=== PATIENT | female | born 2000 | race Caucasian/White ===

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

== ENCOUNTER → 2019-02-26 10:58 | Outpatient (CLI) | payer OTHER, SELFPAY ==
[2019-01-31 16:22] VITALS: BMI 32.5
--- NOTE | 2019-02-26 11:30 | MRI_ITS ---
STUDY: MRI ABDOMEN WITH AND WITHOUT CONTRAST REASON FOR EXAM: Female, 18 years old. Follow-up hepatic mass TECHNIQUE: Standardized fat and water weighted pulse sequences were obtained in all 3 orthogonal planes post contrast administration. IV Dotarem 17 was administered for the contrast portion of the examination. COMPARISON: 08/15/2018 FINDINGS: The visualized lung bases are unremarkable. The visualized portions of the heart are within normal limits. There is no change in the 4.8 x 5.3 cm oval mass of isointensity of the posterior segment the right lobe of the liver which demonstrates transient solid contrast enhancement on the arterial phase images and faint decreased enhancement on the portal venous phase images and more delayed images. This is likely of benign etiology such as a hepatic adenoma or focal nodular hyperplasia. Normal gallbladder and extrahepatic biliary system. Normal spleen. Normal pancreas. Normal bilateral adrenal glands. Normal right kidney. Normal left kidney. Normal visualized stomach. Normal small intestine. Normal colon. The appendix is visualized and appears normal. Normal abdominal aorta. Normal inferior vena cava. Normal retroperitoneum. Normal abdominal wall. Normal osseous structures. MRI/MRI Abd WITH and W/O Contrast IMPRESSION: No change in 4.8 x 5.3 cm isointense transiently solidly enhancing mass of the posterior segment the right lobe of liver likely consistent with hepatic adenoma or focal nodular hyperplasia. Electronically Signed: Luc Arrignton MD at 15:38 EDT Tel , Service support ,
== END ==
PROVIDERS: Family Provider Nurse Practitioner Family; PCP Nurse Practitioner Family
DX: D13.4 Benign neoplasm of liver (principal)
CPT/HCPCS: 74183; A9575; A4216

== ENCOUNTER 2019-03-18 16:49 | Emergency (ER) | payer OTHER, SELFPAY ==
[2019-01-31 16:22] VITALS: BMI 32.5
[2019-03-18 16:50] VITALS: BP 135/86; PULSE 104; RESP 24; TEMP 37.1; O2SAT 106; BMI 33.6
[2019-03-18 17:47] VITALS: BP 112/65; PULSE 80; PULSE 81; RESP 18; RESP 19; TEMP 36.6; O2SAT 100; O2SAT 98; O2SAT 99
--- NOTE | 2019-03-18 18:40 | RAD_ITS ---
STUDY: X-RAY CHEST REASON FOR EXAM: Female, 18 years old. Shortness of breath. Pain. Recent surgery. TECHNIQUE: PA and lateral views of the chest. COMPARISON: September 14, 2018 FINDINGS: The lungs are clear and expanded. There is no demonstrated pleural abnormality. Normal size heart. Normal mediastinum and juan. Normal visualized pulmonary arteries. Normal visualized aortic arch and descending thoracic aorta. Normal visualized thoracic spine. Normal visualized ribs, clavicles, and shoulders. There is postoperative change in the right upper abdomen. RAD/Chest PA and Lateral IMPRESSION: Normal x-ray examination of the chest. Electronically Signed: Travis Coleman MD at 19:01 EST , Service support ,
[2019-03-18 18:41] LABS: Absolute Lymphocyte Count 1.17 X10^3/uL (0.83-4.51); Absolute Neutrophil Count 10.2 X10^3/uL (2.0-7.7); Basophil# 0.03 X10^3/uL; Basophil% 0.2 % (0-1); Eosinophil# 0.28 X10^3/uL; Eosinophils% 2.2 % (0-5); Hemoglobin 11.5 g/dL (12.0-15.0); Lymphocyte # 1.17 X10^3/ul (4.0); Lymphocyte % 9.2 % (19-41); Mean Corp Hgb Conc 32.9 g/dL (32-36); Mean Corpuscular Hgb 28.4 pg (27.0-32.0); Mean Corpuscular Volume 86.4 fL (81-99); Mean Platelet Vol. 9.2 fl (6.2-12.0); Monocyte# 0.88 X10^3/uL; NRBC Flagged by Analyzer 0 % (0-5); Neutrophil # 10.24 X10^3/uL (2.7-7.7); Neutrophil % 80.9 % (47-70); Platelet Count 277 K/mm3 (150-450); RBC Distribution Width CV 12.6 % (11.6-14.6); RBC Distribution Width SD 39.8 fl (35.1-43.9); Red Blood Count 4.05 M/mm3 (4.2-5.4); White Blood Count 12.7 K/mm3 (4.4-11.0)
--- NOTE | 2019-03-18 18:41 | ED.RN ---
PT DECLINING MORPHINE BECAUSE IT DOES NOT WORK. PT REQUESTING TORADOL. DR RON NOTIFIED OF SAME
[2019-03-18 18:50] LABS: Anion Gap 6 (5-15); BUN 10 mg/dL (7-18); BUN/Creat Ratio 16.2 RATIO (10-20); Calcium,Total 9.1 mg/dL (8.5-10.1); Chloride 105 mmol/L (98-107); Creatinine, Serum 0.62 mg/dL (0.55-1.02); EST Glomerular Filtration Rate 132 mL/min (>60); Est Glom Filt Rate - Afr Amer 159 mL/min (>60); Estimated Creatinine Clearance 120.73 ml/min; Glucose 98 mg/dL (74-106); Potassium 3.4 mmol/L (3.5-5.1); Sodium Level 139 mmol/L (136-145)
[2019-03-18] MEDS: Ondansetron 4 MG/2 ML Vial IV (18:51)
[2019-03-18] MEDS: Ketorolac 30 MG/ML Syringe IV (18:53)
[2019-03-18] MEDS: 0.9% Normal Saline 1,000 ML 1000 ML IV (18:54)
[2019-03-18 18:56] VITALS: BP 115/97; PULSE 89; RESP 20; TEMP 36.7; O2SAT 99
[2019-03-18 19:19] LABS: Color, Urine Yellow (Yellow); Glucose, Dipstick Normal (Normal); Ketone-Dipstick 5 mg/dl (Negative); Leukocyte Esterase-Dipstick 100 /ul (Negative); Nitrite-Dipstick Negative (Negative); Occult Blood-Urine 10 /ul (Negative); Protein-Dipstick 30 mg/dl (Negative); Urine Bilirubin Dipstick Negative (Negative); Urine Clarity Sl. Cloudy (Clear); Urine Urobilinogen 4 mg/dl (Normal)
[2019-03-18 19:32] LABS: Bacteria 2+ /hpf (None Seen); Mucous, Urine 2+ /hpf (<or=2+); Red Blood Cells-Urine 0-5 SEEN /hpf (0-5); Squamous Epithelial Cells - UA 25-50 SEEN /hpf (5-10); White Blood Cells 10-25 SEEN /hpf (0-5)
[2019-03-18 20:00] VITALS: BP 121/83; PULSE 88; RESP 16; TEMP 36.6; O2SAT 100
[2019-03-18 21:05] VITALS: BP 134/62; PULSE 88; RESP 18; O2SAT 100
[2019-03-18 22:11] VITALS: BP 134/62; PULSE 82; RESP 17; TEMP 36.6; O2SAT 98
--- NOTE | 2019-03-18 22:11 | ED.DCSUM_ITS ---
- ER Visit Summary Date of Service: 03/18/19 Chief Complaint: Left face pain and shortness of breath History of Present Illness: The patient is a 18 F who presents with left facial pain and shortness of breath that began today. Patient describes the pain as aching and shooting. Patient states the pain is over the left face and radiates down into her left neck. Patient also admits to some left ear pain. Patient admits to some shortness of breath. Patient also admits to a cough. Patient had a recent liver resection on 03/12 at [facility]. Patient admits to subjective fevers and chills. Patient admits to nausea but denies any vomiting. Physical Examination: Vital signs are stable. Patient is afebrile. Patient is in no acute distress. Oral mucosa is pink and moist. Neck is supple. Trachea is midline. There is no JVD. Heart was regular rate and rhythm. Lungs are clear and equal bilaterally. Abdomen is soft. Bowel sounds are normal. The incisions are healing well with no signs of infection. There is some mild tenderness along the incisions. There is no rebound or guarding noted. Cranial nerves II through XII are intact. There are no focal motor or sensory deficits noted. Test Results: PA and lateral chest x-ray was obtained. There is no acute cardiopulmonary process. CBC shows a slight leukocytosis of 12.7. Hemoglobin was 11.5 and hematocrit 35.0. Test was slightly low at 3.4. Urinalysis was contaminated. There were 25-50 epithelial cells and 10-25 white blood cells. Nitrites were negative. Emergency Department Course and Treatment: Patient was given Toradol and Zofran here. Patient was feeling better on reevaluation however she felt like her pain was starting to come back. She wanted me to check to make sure there was no ear infection. Her tympanic membranes were clear bilaterally. Patient was given a dose of tramadol here. Patient was instructed to continue her tramadol at home. Patient was instructed to follow-up with her surgeon and her primary care physician as scheduled. Patient understood and was agreeable with the plan. All questions were answered. Disposition: Discharge home Impression: 1. Left facial pain 2. Dyspnea This note was generated with Rethink Autismation software. It may contain incorrect words, spelling, and punctuation that were not noted in review of the chart prior to signing ED Disposition - Plan for ED Patient: Disposition: Home or Assisted Living Diagnosis: Left facial pain, Dyspnea Instructions: ED Dyspnea Referrals: Bhavna Villalobos INTERVENTION SPECIALIST-C [Primary Care Provider] - 3-5 Days
[2019-03-18] MEDS: traMADol 50 MG Tablet PO (22:15)
== END 2019-03-18 22:20 | disposition home or self-care (01) ==
PROVIDERS: Emergency Provider Emergency Medicine; Family Provider Nurse Practitioner Family; PCP Nurse Practitioner Family
DX: R51 Headache (principal); R06.00 Dyspnea, unspecified; R68.83 Chills (without fever); H92.02 Otalgia, left ear; J02.9 Acute pharyngitis, unspecified; R05 Cough; R11.0 Nausea; M54.2 Cervicalgia; R53.1 Weakness; F17.200 Nicotine dependence, unspecified, uncomplicated
CPT/HCPCS: 71046; 80048; 81001; 85025; 96361; 96374; 96375; 99285; J7030; A4216; J2405

== ENCOUNTER → 2019-11-18 06:36 | Outpatient (CLI) | payer OTHER, SELFPAY ==
[2019-04-09 13:07] VITALS: BMI 32.9
--- NOTE | 2019-11-18 06:54 | MRI_ITS ---
STUDY: MRI ABDOMEN WITH AND WITHOUT CONTRAST REASON FOR EXAM: Female, 19 years old. f/u liver resection February 2019 TECHNIQUE: Standardized fat and water weighted pulse sequences were obtained in all 3 orthogonal planes post contrast administration. IV Yes YES was administered for the contrast portion of the examination. COMPARISON: 02/26/2019 FINDINGS: The visualized lung bases are unremarkable. The visualized portions of the heart are within normal limits. Interval resection of the posterior segment the right lobe of the liver. At the site of resection there are 2 separate 1 cm round areas of enhancement on the arterial phase images which is isointense on later phases worrisome for residual or recurrent mass. Clinical correlation is recommended. Normal gallbladder and extrahepatic biliary system. Normal spleen. Normal pancreas. Normal bilateral adrenal glands. Normal right kidney. Normal left kidney. Normal visualized stomach. Normal small intestine. Normal colon. There is non-visualization of the appendix. Normal abdominal aorta. Normal inferior vena cava. Normal retroperitoneum. Normal abdominal wall. Normal osseous structures. MRI/MRI Abd WITH and W/O Contrast IMPRESSION: Interval wedge resection of the posterior segment the right lobe of the liver with 2 separate 1 cm round areas of enhancement on the arterial phase which are isointense on later phases similar to the prior tumor worrisome for residual or recurrent tumor. Clinical correlation is recommended. Follow-up MRI in 6 months would be useful to document stability or resolution. Electronically Signed: Luc Arrington MD at 9:08 EDT Tel , Service support ,
== END ==
DX: K76.89 Other specified diseases of liver (principal)
CPT/HCPCS: 74183; A9575; A4216

== ENCOUNTER → 2020-07-14 | Outpatient (CLI) | payer OTHER, SELFPAY ==
[2020-07-14 15:06] VITALS: BMI 38.1
[2020-07-18 03:07] LABS: Chlamydia By Nucleic Acid AMP Negative (Negative)
[2020-07-18 13:14] LABS: Gonococcus By Nucleic Acid AMP Negative (Negative)
== END | disposition home or self-care (01) ==
LOC: LABSPEC 16:45
PROVIDERS: Referring Provider Nurse Practitioner Women's Health; Visit Provider Nurse Practitioner Women's Health
DX: N76.0 Acute vaginitis (principal); Z11.3 Encounter for screening for infections with a predominantly sexual mode of transmission
CPT/HCPCS: 87070; 87077; 87205; 87491; 87591

== ENCOUNTER → 2020-11-25 | Outpatient (CLI) | payer OTHER, SELFPAY ==
[2020-11-25 15:33] VITALS: BMI 35.8
== END | disposition home or self-care (01) ==
LOC: LABSPEC 16:54
PROVIDERS: Visit Provider Obstetrics & Gynecology
DX: N76.0 Acute vaginitis (principal)
CPT/HCPCS: 87070; 87205

== ENCOUNTER → 2022-02-01 | Outpatient (CLI) | payer OTHER, SELFPAY ==
[2022-02-01 17:34] LABS: Amphetamine Urine VISTA NEGATIVE (<1000 ng/mL); Barbiturate Urine VISTA NEGATIVE (< 200 ng/mL); Benzodiazepine Urine VISTA NEGATIVE (< 200 ng/mL); Cocaine Urine VISTA NEGATIVE (< 300 ng/mL); Ecstacy Urine VISTA NEGATIVE (< 500 ng/mL); Methadone Urine VISTA NEGATIVE (< 300 ng/mL); PCP Urine VISTA NEGATIVE (< 25 ng/mL); THC Urine VISTA NEGATIVE (< 50 ng/mL); Vista UDS pH Range 7
[2022-02-03 22:06] LABS: Chlamydia By Nucleic Acid AMP Negative (Negative)
[2022-02-04 20:28] LABS: Gonococcus By Nucleic Acid AMP Negative (Negative)
[2022-02-08 13:38] LABS: HPV Reflexed? NOT INDICATED
== END | disposition home or self-care (01) ==
LOC: LABSPEC 16:47
PROVIDERS: Referring Provider Obstetrics & Gynecology; Visit Provider Obstetrics & Gynecology
DX: O09.90 Supervision of high risk pregnancy, unspecified, unspecified trimester (principal); Z3A.00 Weeks of gestation of pregnancy not specified; Z12.4 Encounter for screening for malignant neoplasm of cervix
CPT/HCPCS: 80307; 87086; 87088; 87491; 87591; 88175; G0145

== ENCOUNTER → 2022-03-01 | Outpatient (CLI) | payer OTHER, SELFPAY ==
[2022-03-01 15:40] LABS: Absolute Lymphocyte Count 1.86 X10^3/uL (0.83-4.51); Absolute Neutrophil Count 10.6 X10^3/uL (2.0-7.7); Basophil# 0.03 X10^3/uL; Basophil% 0.2 % (0-1); Eosinophil# 0.15 X10^3/uL; Eosinophils% 1.1 % (0-5); Hematocrit 38.3 % (37-47); Hemoglobin 13.3 g/dL (12.0-15.0); Lymphocyte # 1.86 X10^3/ul (0.83-4.51); Lymphocyte % 14.1 % (19-41); Mean Corp Hgb Conc 34.7 g/dL (32-36); Mean Corpuscular Hgb 31.1 pg (27.0-32.0); Mean Corpuscular Volume 89.5 fL (81-99); Mean Platelet Vol. 9.7 fl (6.2-12.0); Monocyte% 3.8 % (0-10); NRBC Flagged by Analyzer 0 % (0-5); Neutrophil # 10.61 X10^3/uL (2.7-7.7); Neutrophil % 80.5 % (47-70); Platelet Count 227 K/mm3 (150-450); RBC Distribution Width CV 12.4 % (11.6-14.6); RBC Distribution Width SD 40.4 fl (35.1-43.9); Red Blood Count 4.28 M/mm3 (4.2-5.4); White Blood Count 13.2 K/mm3 (4.4-11.0)
[2022-03-01 17:53] LABS: HIV - WCH Non-Reactive (Nonreactive); Hepatitis B Surface Antigen Non-Reactive (Nonreactive); Hepatitis C Antibody Non-Reactive (Nonreactive); Rubella IgG Reactive (Nonreactive); Syphilis Antibodies Non-reactive
== END | disposition home or self-care (01) ==
LOC: LAB 15:06
PROVIDERS: Visit Provider Obstetrics & Gynecology
DX: O09.90 Supervision of high risk pregnancy, unspecified, unspecified trimester (principal); Z3A.00 Weeks of gestation of pregnancy not specified
CPT/HCPCS: 36415; 85025; 86703; 86762; 86780; 86803; 86850; 86900; 86901; 87340

== ENCOUNTER → 2022-03-04 | Outpatient (CLI) | payer OTHER, SELFPAY ==
[2022-03-04 12:30] LABS: NATERA MAILED SPECIMEN
== END | disposition home or self-care (01) ==
LOC: LAB 11:27
PROVIDERS: Referring Provider Obstetrics & Gynecology; Visit Provider Obstetrics & Gynecology
DX: Z34.81 Encounter for supervision of other normal pregnancy, first trimester (principal)
CPT/HCPCS: 36415

== ENCOUNTER → 2022-07-04 | Outpatient (CLI) | payer BC, SELFPAY ==
[2022-07-04 15:34] LABS: Absolute Lymphocyte Count 1.89 X10^3/uL (0.83-4.51); Absolute Neutrophil Count 10.8 X10^3/uL (2.0-7.7); Basophil# 0.04 X10^3/uL; Basophil% 0.3 % (0-1); Eosinophils% 1.4 % (0-5); Hematocrit 37.2 % (37-47); Hemoglobin 12.2 g/dL (12.0-15.0); Lymphocyte # 1.89 X10^3/ul (0.83-4.51); Lymphocyte % 13.4 % (19-41); Mean Corp Hgb Conc 32.8 g/dL (32-36); Mean Corpuscular Volume 91.6 fL (81-99); Mean Platelet Vol. 9.3 fl (6.2-12.0); Monocyte# 1.02 X10^3/uL; Monocyte% 7.2 % (0-10); NRBC Flagged by Analyzer 0 % (0-5); Neutrophil % 76.7 % (47-70); Platelet Count 215 K/mm3 (150-450); RBC Distribution Width CV 12.7 % (11.6-14.6); RBC Distribution Width SD 42.5 fl (35.1-43.9); Red Blood Count 4.06 M/mm3 (4.2-5.4); White Blood Count 14.1 K/mm3 (4.4-11.0)
[2022-07-04 15:49] LABS: Glucose Challenge Gest 1H 50g 93 mg/dL (70-140)
[2022-07-04 16:21] LABS: HIV - WCH Non-Reactive (Nonreactive); Syphilis Antibodies Non-reactive
== END | disposition home or self-care (01) ==
LOC: LAB 14:56
PROVIDERS: Referring Provider Obstetrics & Gynecology; Visit Provider Obstetrics & Gynecology
DX: Z34.92 Encounter for supervision of normal pregnancy, unspecified, second trimester (principal); Z3A.26 26 weeks gestation of pregnancy
CPT/HCPCS: 36415; 82950; 85025; 86703; 86780; 86900; 86901

== ENCOUNTER → 2022-08-15 | Outpatient (CLI) | payer BC, SELFPAY | END | disposition home or self-care (01) | PROVIDERS: Visit Provider Obstetrics & Gynecology | DX: Z34.90 Encounter for supervision of normal pregnancy, unspecified, unspecified trimester (principal) | CPT/HCPCS: 87081 ==

== ENCOUNTER 2022-09-06 22:45 | Inpatient (IN) | payer BC, SELFPAY ==
[2022-09-06 19:05] VITALS: BP 127/80; PULSE 94; O2SAT 98
[2022-09-06 19:47] VITALS: TEMP 36.9
[2022-09-06 19:54] VITALS: BMI 36.6
--- NOTE | 2022-09-06 20:58 | OB.TRI.PN_ITS ---
Progress Notes Date of Service: 09/06/22 Progress Note: Patient presents for triage evaluation secondary to contractions FHT: 145 Moderate variability reactive no decelerations category I tracing [place]: Irregular Contractions Assessment and plan: Reactive NST, reassuring maternal and status. Will reassess SVE in 2 hours. If no change, will D/C home. See problem list details for additional plan information.
[2022-09-06 22:39] VITALS: BP 122/84; PULSE 110; TEMP 36.6; O2SAT 97
[2022-09-06] MEDS: Lactated Ringers 1,000 ML 50 ML IV (23:02)
[2022-09-06 23:24] LABS: Absolute Lymphocyte Count 1.96 X10^3/uL (0.83-4.51); Absolute Neutrophil Count 9.9 X10^3/uL (2.0-7.7); Basophil# 0.06 X10^3/uL; Basophil% 0.5 % (0-1); Eosinophils% 2.3 % (0-5); Hematocrit 36.1 % (37-47); Lymphocyte # 1.96 X10^3/ul (0.83-4.51); Lymphocyte % 14.8 % (19-41); Mean Corp Hgb Conc 33.2 g/dL (32-36); Mean Corpuscular Hgb 29.9 pg (27.0-32.0); Mean Platelet Vol. 10.5 fl (6.2-12.0); Monocyte# 0.88 X10^3/uL; Monocyte% 6.6 % (0-10); NRBC Flagged by Analyzer 0 % (0-5); Neutrophil # 9.94 X10^3/uL (2.7-7.7); Neutrophil % 74.7 % (47-70); POSITIVE COUNT YES; Platelet Count 192 K/mm3 (150-450); RBC Distribution Width CV 12.8 % (11.6-14.6); RBC Distribution Width SD 42.2 fl (35.1-43.9); Red Blood Count 4.01 M/mm3 (4.2-5.4); White Blood Count 13.3 K/mm3 (4.4-11.0)
[2022-09-06 23:28] LABS: Differential Indicated SCAN CRITERIA MET
--- NOTE | 2022-09-06 23:42 | HP.PCM.OB_ITS ---
HPI - General General Date of Admission: 09/06/22 Date of Service: 09/06/22 Chief Complaint: contractions HPI Narrative JOYA ANG, is a , 22 F at 39.3 weeks gestation who presents IAL. Maternal Data Information HARPER Calculator Estimated Delivery Date Method Current WG Current Estimate 09/10/22 LMP (Certain) 39w 3d Other Estimates 09/07/22 Ultrasound #1 39w 6d Final HARPER: 09/10/22 Final HARPER Source: US >20 weeks Gestational age: 39 weeks 3 days PFSH PFSH Medical History Anxiety and depression Balance problem Chronic headaches Chronic neck and back pain Fatigue Liver lesion, right lobe Pain due to intrauterine contraceptive device (IUD) depression Home Medications vitamins no.163-iron bis-gly 20 mg-folate no.10 1 mg tablet (PNV Tabs 20-1) 1 tab PO DAILY 01/28/22 [History Last Taken Unknown] Allergy/AdvReac Type Severity Reaction Status Date / Time aloe vera Allergy Mild Rash Verified 09/06/22 19:55 Family History Mother Diabetes Heart disease Unknown Cancer Hypertension Liver disease Surgical History Hx of biopsy Hx of resection of liver Social History adopted: No household members: spouse and children housing: house number of children: 1 current occupational status: employed current occupation: [employer] current occupational exposures/hazards: No pets and animals: Yes pets and animals: dog(s) and bird(s) history of recent travel: No sexually active: Yes Smoking Status: Former smoker Electronic Cigarette Use: with nicotine alcohol intake: never substance use type: does not use well-balanced diet: daily or most days caffeine: Yes Type: coffee Number of servings: 1 eating out: 1-3 times/week during the past year weight has: decreased > 10 lbs what type of physical activity do you participate in: walking emilia/mu-ism: None seatbelt use: always do you feel safe at home: Yes additional social history: Spouse Arie Ang History 2 Elective abortions Hx Para 1 Spontaneous abortions Hx # Term Pregnancies Ectopic pregnancies Hx # Pregnancies Multiple births # of living children 1 Past Pregnancies Del. Date Name GA/Weeks Outcome Route Bth Weight Infant Gen Labor Lgth Anesthesia Emir Castellonatstarr Provider FOB Unknown Fatimah 41 live - full term Female risa al [facility] SM Delivery Date: Last Updated by: Ling Urbina Chorioamnionitits, decels, tight nuchal cord Visit Details Expected Delivery Route/Plan Labor Preferences- CB/BF classes: no labor support person: arie labor intervention preferences: [] pain management options preferred: epidural cut cord/dad catch:dad wants cut : yes PP control planned: discussed discussed possible routes of delivery and associated risks: [] special requests: wants prolonged delayed cord clamping. Plans Covid status: unvaccinated Flu vaccine: thinking about it Tdap vaccine: vaccinated last Rhogam: 07/04/22 LARC form signed: yes movement and labor precautions reviewed. Problem list reviewed and updated with the most current plan of care details and appropriate orders placed. Relevant counseling for the gestational age provided. Continue routine care and follow up unless otherwise noted in visit notes/problem list details OB Flowsheet Initial Weight: Not Recorded Date -?-?-?-?-?-?-?-?-?-?-?-?- EGA Weight BP Urine Prot -?-?-?-?-?-?-?-?--?-?-?-?- Glucose FHR FuHt Pres Dilation -?-?-?-?-?-?-?-?-?-?-?-?- Effaced St Visit Note 03/01/22 -?-?-?-?-?-?-?-?-?-?-?-?- 12w 3d 173 lb 6 oz 126/83 Nega tive -?-?-?-?-?-?-?-?-?-?-?-?- Negative 160 -?-?-?-?-?-?-?-?-?-?-?-?- JV- CRL consiste nt with established GA. pt is getting NIPT testing today. 03/29/22 -?-?-?-?-?-?-?-?-?-?-?-?- 16w 3d 177 lb 6 oz 112/74 Nega tive -?-?-?-?-?-?-?-?-?-?-?-?- Negative 164 -?-?-?-?-?-?-?-?-?-?-?-?- MH-No VB, anne rose. Feeling movement. Doing well 04/26/22 -?-?-?-?-?-?-?-?-?-?-?-?- 20w 3d 181 lb 4 oz 103/67 Nega tive -?-?-?-?-?-?-?-?-?-?-?-?- Negative 134 -?-?-?-?-?-?-?-?-?-?-?-?- JV- [facility] on 05/[facility] for VSD. will discuss with [place] [facility] on L&D if candidate to deliver here 06/06/22 -?-?-?-?-?-?-?-?-?-?-?-?- 26w 2d 190 lb 115/71 -?-?-?-?-?-?-?-?-?-?-?-?- 145 26 -?-?-?-?-?-?-?-?-?-?-?-?- SM- no vb lof go od fm no regular ctx 07/04/22 -?-?-?-?-?-?-?-?-?-?-?-?- 30w 2d 195 lb 4 oz 112/72 Nega tive -?-?-?-?-?-?-?-?-?-?-?-?- Negative 146 30 -?-?-?-?-?--?-?-?-?-?-?-?- MH-No VB, LOF. G ood FM. Normal Echo:no . Wishes to defer growth US due to cost. 07/18/22 -?-?-?-?-?-?-?-?-?-?-?-?- 32w 2d 198 lb 4 oz 114/74 Nega tive -?-?-?-?-?-?-?-?-?-?-?-?- Negative 142 32 -?-?-?-?-?-?-?-?-?-?-?-?- LC- doing well. no vb/ctx/lof. good fm. discussed pp anxiety/depression. PSI resource provided. 08/02/22 -?-?-?-?-?-?-?-?-?-?-?-?- 34w 3d 199 lb 136/82 108/75 Trace -?-?-?-?-?-?-?-?-?-?-?-?- Negative 146 34 -?-?-?-?-?-?-?-?-?-?-?-?- LC- doing well. no ctx/lof/vb. good fm. tdap today. 08/15/22 -?-?-?-?-?-?-?-?-?-?-?-?- 36w 2d 202 lb 6 oz 105/72 Nega tive -?--?-?-?-?-?-?-?-?-?-?-?- Negative 140 36 Cephalic 2 .5 -?-?-?-?-?-?-?-?-?-?-?-?- 60 -2 SM- no vb lof good fm no regular ctx gbs 08/23/22 -?-?-?-?-?-?-?-?-?-?-?--?- 37w 3d 206 lb 115/75 Negative -?-?-?-?-?-?-?-?-?-?-?-?- Negative 135 37 -?-?-?-?-?-?-?-?-?-?-?-?- LC-no vb/lof/ctx . good fm. no concerns today 08/29/22 -?-?-?-?-?-?-?-?-?-?-?-?- 38w 2d 206 lb 6 oz 119/77 Nega tive -?-?-?-?-?-?-?-?-?-?-?-?- Negative 145 38 Cephalic 3 -?-?-?-?-?-?-?-?-?-?-?-?- 80 -2 JV- labor precautions discussed. no lof, vaginal bleeding, or dec fm. 09/06/22 -?-?-?-?-?-?-?-?-?-?-?-?- 39w 3d 210 lb 123/84 Negative -?-?-?-?-?-?-?-?-?-?-?-?- Negative 140 39 Cephalic 4 -?-?-?-?-?-?-?-?-?-?-?-?- 90 -2 LC- no lof /vb/ctx. good fm. plan for PPD reviewed. desires to start citalopram prior to dc from . f/u in office at 2 weeks. NST FHR Rate Baby A Baseline: 130 Variability:: Minimal Accelerations:: 15 x 15 Decelerations:: None NST Reactive:: Yes FHR Category:: Category I Uterine Activity:: 3-5 minutes ROS Constitutional Constitutional: Denies change in weight, fatigue, fever(s), headache(s), poor appetite or weakness Eyes Eyes: Denies blurry vision, change in vision, floaters, seeing flashes or spots in vision ENT HEENT: Denies dizziness, headache(s), loss taste/smell or sore throat Cardiovascular Cardiovascular: Denies chest pain, dizziness, dyspnea, irregular heart rhythm, lightheadedness, palpitations or rapid heart rate Respiratory/Chest Respiratory/Chest: Denies change in mental status, chest tightness, cough, dyspnea or breast pain Gastrointestinal Gastrointestinal: Denies anorexia, chewing difficulty, constipation, diarrhea or weight changes Genitourinary Genitourinary: Denies difficulty urinating, dysuria, flank pain, genital pain, urinary frequency or urinary urgency Musculoskeletal Musculoskeletal: Denies back pain, difficulty walking, extremity pain, joint pain, muscle cramps or muscle weakness Integumentary Integumentary: Denies lesions or unusual bruising Neurologic Neurologic: Denies abnormal movements, abnormal speech, dizziness, numbness, seizure-like activity, syncope or weakness Psychiatric Psychiatric: Denies behavioral changes, change in appetite, confusion, depression, homicidal ideation, suicidal ideation or suicidal thoughts Endocrine Endocrinology: Denies excessive sweating, polydipsia or polyuria Hematologic/Lymphatic Hematologic/Lymphatic: Denies anemia Allergic/Immunologic Allergic/Immunologic: Denies itchy eyes, lip swelling, throat swelling, tongue swelling or wheezing Vital Signs Vital Signs Vital Signs: 09/06/22 19:05 09/06/22 19:05 09/06/22 19:05 Temperature Temperature Source Temporal Pulse Rate 94 Blood Pressure 127/80 H BP Systolic 127 BP Diastolic 80 Pulse Ox 09/06/22 19:05 09/06/22 19:47 09/06/22 19:47 Temperature 98.5 F Temperature Source Temporal Pulse Rate Blood Pressure BP Systolic BP Diastolic Pulse Ox 98 09/06/22 22:39 09/06/22 22:39 09/06/22 22:39 Temperature Temperature Source Temporal Pulse Rate 110 H Blood Pressure 122/84 H BP Systolic 122 BP Diastolic 84 Pulse Ox 09/06/22 22:39 09/06/22 22:39 Temperature 97.8 F Temperature Source Pulse Rate Blood Pressure BP Systolic BP Diastolic Pulse Ox 97 Weight Weight: 210 lb Body Mass Index (BMI) 36.6 Physical Exam Const alert, oriented x3 and no apparent distress General Appearance: cooperative Orientation / Consciousness: awake HEENT normocephalic Neck full ROM Lymph Lymphatic: no lymphadenopathy noted Chest inspection of chest normal Resp normal respiratory effort and normal air movement Effort and Inspection: able to speak in complete sentences and symmetric chest movement GI soft to palpation and non-tender Inspection: gravid Palpation: soft; Negative for tender external exam normal Manual OB Exam: estimated gestational size, presentation cephalic, dilated 5, effaced 90 and station -2 Back/Spine normal to inspection Extremity normal to inspection and full ROM Skin no rashes or lesions noted Psych mental status grossly normal Appearance: grossly normal Speech: normal speech Labs Labs Labs: Blood Type B NEGATIVE Antibody Screen NEGATIVE Hct 36.1 % (37-47) L Hgb 12.0 g/dL (12.0-15.0) Syphilis Total Ab Non-reactive Rubella IgG Antibody Reactive (Nonreactive) Hep Bs Antigen Non-Reactive (Nonreactive) Chlamydia DNA (FRANCI) Negative (Negative) Neisseria gonorrhoeae DNA (FRANCI) Negative (Negative) HIV 1&2 Antibody Non-Reactive (Nonreactive) Glucose 1 Hr 50 gm 93 mg/dL (70-140) Group B Strep DNA Negative (Negative) Rhogam given: Yes Assessment & Plan (1) ventricular septal defect in , antepartum, single gestation: COMMENT: M for treatment and monitoring: baby does NOT have VSD (2) Supervision of high risk , antepartum: COMMENT: [id number], HARPER 09/10/22,boy [facility] Aria Spouse Arie Love (3) : QUALIFIERS: Weeks of gestation: 38 weeks Qualified Code(s): Z3 A.38 - 38 weeks gestation of COMMENT: GSB neg, NIPT low risk, discussed carrier testing (4) Rh negative, antepartum: COMMENT: Rhogam at 28 weeks & PRN spotting (5) Hx of depression, currently : COMMENT: will desire additional pp visits to check in. support international resourses discussed starting counseling will desire citalopram after delivery. (6) Anxiety: COMMENT: stable (7) Active labor at term: PLAN: Patient presents IAL, plan expectant management for , pitocin/AROM PRN if needed. Pain management: plans epidural. GBS negative. Management of any complications: none I have reviewed the [facility] and made any clinically relevant updates. Dr Montemayor to follow, notified of admission status, agrees with plan of care. Charges/Coding Multi Select Codes Urinary/Genital Urinary/Genital CPT Codes: No Charge
[2022-09-06 23:50] LABS: Differential Comment SCANNED; Platelet Estimate ADEQUATE (ADEQ)
[2022-09-07] VITALS (49 sets, daily range): BP systolic 92–140; BP diastolic 47–91; PULSE 60–118; RESP 15; TEMP 36.1–37.4; O2SAT 93–100
[2022-09-07 00:46] LABS: Syphilis Antibodies Non-reactive
[2022-09-07] MEDS: Oxytocin 15 Units/NS 250ml 15 UNITS/250 ML IV.SOLN 2 UNITS IV (06:42)
--- NOTE | 2022-09-07 08:09 | PN_ITS ---
Progress Note pt is sitting up in bed without complaints. She has been started on pitocin but still only at 2 mu/min, likely due to nursing sign out and delay from pharmacy. she consents to AROM current tracing: FHT: Moderate variability reactive no decelerations category I tracing [place]: irregular Contractions cx: vtx appreciated. dilated 5/80/-1. AROM with clear fluid A/P: 22y/o @ 39 weeks 4 days, stalled out in active labor -now on pitocin and membranes ruptured plan for epidural continue increasing pitocin. Assessment & Plan Assessment/Plan (1) Active labor at term: (2) ventricular septal defect in , antepartum, single gestation: (3) Supervision of high risk , antepartum: (4) : QUALIFIERS: Weeks of gestation: 38 weeks Qualified Code(s): Z3A.38 - 38 weeks gestation of (5) Rh negative, antepartum: (6) Hx of depression, currently : (7) Liver lesion, right lobe: (8) Anxiety:
[2022-09-07] MEDS: LACTATED RINGERS 500 ML 999 ML IV (08:17)
[2022-09-07] MEDS: fentaNYL-bupivacaine (epidural) 100 ML BAG EPIDURAL ×2 (09:09→13:40)
[2022-09-07] MEDS: Lactated Ringers 1,000 ML 200 ML IV (11:12)
[2022-09-07] MEDS: Ondansetron 4 MG/2 ML Vial IV (11:56)
[2022-09-07] MEDS: Oxytocin 15 Units/NS 250ml 15 UNITS/250 ML IV.SOLN 83 UNITS IV (16:16)
[2022-09-07] MEDS: Acetaminophen 500 MG Tablet PO (17:27)
--- NOTE | 2022-09-07 18:42 | EX.PCM.OBRPT ---
Assessment & Plan (1) Active labor at term: (2) ventricular septal defect in , antepartum, single gestation: COMMENT: MFM for treatment and monitoring: baby does NOT have VSD (3) Supervision of high risk , antepartum: COMMENT: [id number], HARPER 09/10/22,mil Shiva PC Fatimah Spouse Arie Ang (4) : QUALIFIERS: Weeks of gestation: 38 weeks Qualified Code(s): Z3A.38 - 38 weeks gestation of COMMENT: GSB neg, NIPT low risk, discussed carrier testing (5) Rh negative, antepartum: COMMENT: Rhogam at 28 weeks & PRN spotting (6) Hx of depression, currently : COMMENT: will desire additional pp visits to check in. support international resourses discussed starting counseling will desire citalopram after delivery. (7) Liver lesion, right lobe: COMMENT: benign when removed but came back. will consult GI (8) Anxiety: COMMENT: stable Maternal Data Information HARPER Calculator Estimated Delivery Date Method Current WG Current Estimate 09/10/22 LMP (Certain) 39w 4d Other Estimates 09/07/22 Ultrasound #1 40w 0d Final HARPER: 09/10/22 Final HARPER Source: LMP Gestational age: 39 weeks 5 days Vaginal Delivery Maternal Presentation Maternal Presentation: Elective Induction Maternal Presentation: patient presented with contractions at 7 pm. the contractions were persistent and she changed her cx from 4 cm to 5cm, however contractions slowed and her cervix was unchanged. Pt lives 1.5 hrs away and was given option for induction of labor vs discharge to home and chose induction of labor Type of Induction: Pitocin and Amniotomy Operative Information Date of Procedure: 09/07/22 Pre-Operative Diagnosis: @39 weeks 5 days, early labor Post-Operative Diagnosis: @39 weeks 5 days, early labor Type of Anesthesia: Epidural Drain: Marte to straight drain Findings Description of Procedure: Patient began pushing and delivered the head in the AGUSTIN presentation. The head was delivered atraumatically and a loose nuchal cord ?1 was identified and easily reduced over the infant's head. The anterior and posterior shoulders delivered without complication followed by the rest of the and the infant was placed on the maternal abdomen. Delayed cord clamping was employed for approximately 60 seconds. Cord was clamped and cut and gentle traction was applied to the cord and the placenta delivered spontaneously immediately following it was noted to be intact with three-vessel cord. The perineum and vagina were inspected and noted to have no laceration. EBL was 50cc. Patient and tolerated delivery well. baby boy Shannon Presentation: Vertex Amniotic Membrane Rupture Type: Spontaneous Amniotic Fluid Description: Clear Placental Delivery Description: Spontaneous Placenta Disposition: [facility] Cord Vessel Description: 3 Vessels Cord Entanglement: None A Gender: Male (1 minute): 8 (5 minute): 9 Delayed Cord Clamping: Yes Post Vaginal Delivery Medications Given After Delivery: IV Pitocin Episiotomy Description: None Complication Complications: None Multi Select Codes Urinary/Genital Urinary/Genital CPT Codes: 05479 Vaginal Delivery [facility]
--- NOTE | 2022-09-07 18:46 | DCINST_ITS ---
Discharge Instructions Diet Discharge Diet: No restrictions Activity Discharge Activity: Return to Normal Activity, May Not Drive (while taking narcotic pain medications.) and May Shower May resume sexual activity in: 4-6 weeks Dressing / Incision Call your doctor if your incision/area has: Continuous Slow Oozing, Sudden Increased Bleeding, Increased Pain/ Swelling, Increased Redness and Foul Smelling Discharge Follow Up Care Please Follow Up With: Trice Montemayor, DO When: Call [phone] to make an appointment with your doctor in 6 weeks. If you had elevated blood pressure or 4th degree laceration, you will need to be seen in 2 weeks. Test Results: Test results from this visit will be discussed in further detail at your follow- up appointment, if applicable. Discharge Plan Admission Admit Date/Time: 09/06/22 22:45 Attending Provider: Trice Montemayor Primary Care Provider: Care Physician,Rosario Primary Discharge Orders/Prescriptions Prescriptions: No Action PNV Tabs 20-1 20 mg iron- 1 mg tablet 1 tab PO DAILY Referrals / Follow Up: Care Physician,Rosario Primary [Primary Care Provider] -
[2022-09-07] MEDS: Ibuprofen 600 MG Tablet PO (20:39)
[2022-09-08 04:51] VITALS: BP 110/67; PULSE 82; RESP 15; TEMP 36.6
[2022-09-08] MEDS: Ibuprofen 600 MG Tablet PO ×2 (06:01→13:48)
--- NOTE | 2022-09-08 07:51 | PCM.PN.OB ---
Subjective Subjective Patient doing well without complaints. Tolerating PO. Ambulating and voiding without difficulty. Feeding well. Denies chest pain, shortness of breath, calf pain/swelling, fevers, chills, lightheadedness. Objective Data Objective Data Vital Signs: Vital Signs Temp Pulse Resp BP Pulse Ox O2 Del Method 97.9 F 82 15 110/67 96 Room Air 09/08/22 04:51 09/08/22 04:51 09/08/22 04:51 09/08/22 04:51 09/07/22 23:58 09/08/22 04:51 Oxygen Delivery Method Room Air Weight: 210 lb Body Mass Index (BMI) 36.6 Intake & Output: Intake and Output for Last 24 Hours 09/06/22 09/07/22 09/08/22 23:59 23:59 23:59 Intake Total 2801.14 / 2801.14 Output Total 1550 / 1550 Balance 1251.14 / 1251.14 Lab / Micro Data Result Diagrams: 09/06/22 22:55 Labs: Laboratory Results - last 24 hr 09/07/22 17:54: Screen NEGATIVE, Baby's Blood Type AB POSITIVE, Baby's ERLINDA NEGATIVE Physical Exam Const alert and oriented x3 HEENT normocephalic Eyes PERRL Neck full ROM Resp normal respiratory effort GI soft to palpation GI Narrative: FF below U Assessment & Plan (1) Spontaneous vaginal delivery: COMMENT: 09/07/22 boy Shiva MontalvoNneka (2) Rh negative, antepartum: COMMENT: Rhogam at 28 weeks & PRN spotting (3) History of depression: PLAN: Plan s/p PPD # 1 1. routine post delivery care 2. breast feeding- support given 3. rh negative 4. rubella immune 5. home today
[2022-09-08] MEDS: Acetaminophen 500 MG Tablet 1000 MG PO ×2 (08:47→17:19)
[2022-09-08 09:11] VITALS: BP 127/67; PULSE 85; PULSE 86; RESP 16; TEMP 36.7; O2SAT 98
--- NOTE | 2022-09-08 11:12 | CASEMGMT ---
Social Work Assessment Labor and Delivery Unit Patient Address: [address] [place] [address] [address], [place] [id number] Phone number: [phone] Date of Referral: 09/07/2022 Time of Referral: [id number] Referred By: Alf Valentino Date of Intervention: 09/08/2022 Time of Intervention: 10:45 Reason for Referral: HX of PPD, anxiety and depression History obtained from: medical records and mother of baby (MOB) and FOB Household composition: MOB, FOB (Arie Ang), and 4 year old sister Fatimah Patient's parent/guardian status: Parents together 3 years and . FOB's first baby and MOB second child. Medical History: MOB has had 3 pregnancies and 2 babies now. MOB had appropriate care. Plans to breastfeed, past success with . MOB reports follow up appointment. Baby boy Shiva, 8/9, 8.14 lbs, heart murmur noted. Educational Status: MOB and FOB graduated high school and have no educational concerns Financial Status: Parents deny financial concerns and MOB plans not to return to work Infant Supplies: MOB reports having crib/bassinet, carseat and all baby needs/supplies Childcare/Caregiver(s): MOB's sister (Aunt) Transportation: No concerns Programs/Agencies Involved: None noted, denied WIC/Help Me grow, MOB reports having help me grow with first child. Children Services/Legal Issues: None reported Behavioral Health Issues: MOB reports hx of depression, anxiety and PPD. MOB reports being proactive due to already present depression symptoms and requested to be discharged with Celexa and 2 week follow up scheduled. MOB denies SI hx/current. MOB reports counseling as a teenager and willing to return to counseling if concerns arise. MOB and FOB deny any significant mental health history in family. Substance Use History: MOB and FOB deny substance abuse concerns. MOB reports father was a multi-substance addict in the past and she has avoided substances due to risk. No drug screens available for MOB. Family/Social Stressors: Denies family stressors Support Systems: MOB's sister (baby's aunt) will help as needed. Grandparents supportive but not local. FOB taking some time off work. Depression: Education and resources provided. MOB being d/c with Celexa due to past PPD/depression and has taken it in the past with good results. Shaken Baby: Education provided, parents receptive Safe Sleeping: Education provided, parents receptive PLAN: No other services requested or indicated. Christin Garcia CARD BRUSHER, PROPOSAL MANAGER
[2022-09-08 18:00] VITALS: BP 121/76; PULSE 82; RESP 16; TEMP 36.9; O2SAT 95
[2022-09-08 18:24] VITALS: BP 121/76; PULSE 80; PULSE 82; O2SAT 94
== END 2022-09-08 19:10 | disposition home or self-care (01) | DRG 807 ==
LOC: WPOUT 22:49 → WP 22:49
PROVIDERS: Admitting Provider Obstetrics & Gynecology; Referring Provider Obstetrics & Gynecology; Visit Provider Obstetrics & Gynecology
DX: O35.8XX0 Maternal care for other (suspected) fetal abnormality and damage, not applicable or unspecified (principal); Z37.0 Single live birth; O99.344 Other mental disorders complicating childbirth; F41.9 Anxiety disorder, unspecified; K76.9 Liver disease, unspecified; O69.81X1 Labor and delivery complicated by cord around neck, without compression, fetus 1; O99.62 Diseases of the digestive system complicating childbirth; O26.893 Other specified pregnancy related conditions, third trimester; Z67.21 Type B blood, Rh negative; Z3A.39 39 weeks gestation of pregnancy; Z87.59 Personal history of other complications of pregnancy, childbirth and the puerperium; Z87.891 Personal history of nicotine dependence
CPT/HCPCS: 59025; 59050; 85025; 85461; 86780; 86850; 86900; 86901; 99221; J7120; G0378; J2405; J2790